=== PATIENT | female | born 1950 | race Hispanic/Latino ===

== ENCOUNTER 2025-01-21 22:02 | Inpatient (IN) | payer OTHER ==
--- OUTSIDE RECORDS SUMMARY | 2025-01-21 22:06 | XMS REPORT | Continuity of Care Document ---
Author Name Unknown Address [address] [facility] [address] [place] [address] Organization [facility] Address [address] [facility] [address] [place] [address] Care Team Providers Care Sales Administration Manager Name Role Phone Pcp, Patient Does Not Have A Primary Care Physic missy Doctor Unassigned, [place] Attending Clinician U navailable Payers Payer Name Policy Type Policy Number Effective Date Expirati on Date Source Problems Condition Name Condition Details Condition Category Status Onset Date Resolution Date Last Treatment Date Treating Clinician Comments Source Anemia Anemia Disease Active 03-07 00:00: 00 [facility] Polymyalgi a rheumatica Polymyalgi a rheumatica Disease Active 12-31 00:00: 00 [facility] Positive BLUE (antinucle ar antibody) >1:1280 Positive BLUE (antinucle ar antibody) >1:1280 Disease Active 12-20 00:00: 00 [facility] 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 QuantiFERO N-TB test Disease Active 12-19 00:00: 00 [facility] CRP elevated: CRP 19, ESR 120 CRP elevated: CRP 19, ESR 120 Disease Active 12-19 00:00: 00 [facility] Other chronic pain Other chronic pain Disease Active 12-17 00:00: 00 [facility] Rotator cuff tendinitis , unspecifie d laterality Rotator cuff tendinitis , unspecifie d laterality Disease Active 12-17 00:00: 00 [facility] detention (current) use of systemic steroids detention (current) use of systemic steroids Disease Active 12-17 00:00: 00 [facility] At risk for bone density loss At risk for bone density loss Disease Active 12-17 00:00: 00 [facility] Swelling of both hands Swelling of both hands Disease Active 12-17 00:00: 00 [facility] Immunizati on counseling Immunizati on counseling Disease Active 12-17 00:00: 00 [facility] Social History Social Habit Start Date Stop Date Quantity Comments Source [facility] function 2019-04-09 00:00:00 2019-04-09 00:00:00 [facility] Tobacco use and exposure 2017-12-17 00:00:00 2017-12-17 00:00:00 Smokeless tobacco non-user [facility] Alcoholic beverage intake 2017-12-17 00:00:00 2017-12-17 00:00:00 Current non-drinker of alcohol (finding) [facility] Sex assigned at 1950 00:00:00 1950 00:00:00 [facility] Smoking Status Start Date Stop Date Source Never smoked tobacco [facility] Medications Ordered Medication Name Filled Medication Name Start Date Stop Date Current Medication? Ordering Clinician Indication Dosage Frequency Signature (SIG) Comments Components Source triamterene -hydrochlor othiazid 37.5-25 mg tablet 11-27 00:00: 00 Yes 1{tbl} Take 1 tablet by mouth every morning. [facility] traMADOL 50 mg tablet 11-26 00:00: 00 Yes 50mg Take 50 mg by mouth 2 (two) times daily. [facility] lisinopril 40 mg tablet 11-21 00:00: 00 Yes 40mg Take 40 mg by mouth daily. [facility] clonazePAM 0.5 mg tablet 11-21 00:00: 00 Yes .5mg Take 0.5 mg by mouth at bedtime as needed. [facility] Procedures Procedure Date / Time Performed Performing Clinician Source QUANTIFERON(R)-TB GOLD-Q 2017-12-18 04:00:00 Twan Major [facility] FOOT, COMPLETE MIN. 3 VIEWS 2017-12-17 16:00:00 Michael Major [facility] HAND, 3 VIEWS AND MORE 2017-12-17 16:00:00 Rachel Major [facility] HAND, 3 VIEWS AND MORE 2017-12-17 16:00:00 Rachel Major [facility] FOOT, COMPLETE MIN. 3 VIEWS 2017-12-17 16:00:00 [facility] A[facility](TM[facility] SCREEN$W/REFL TO TITER, IFA-Q 2017-12-17 16:00:00 [facility] HEPATITIS B SURFACE$ANTIGEN W/ CONFIRMATION-Q 2017-12-17 16:00[facility]$ANTIBODY QL-Q 2017-12-17 16:00:00 Moriah [facility] KJBBIRM-2-ABMLIQORM $DEHYDROGENASE, QUANT.-Q 2017-12-17 16:00:00 Moriah [facility] PROTEIN, TOTAL AND PROTEIN ELECTROPHORESIS-Q 2017-12-17 16:00:00 [facility] SED RATE BY MODIFIED$WESTERGREN-Q 2017-12-17 16:00:00 Moriah [facility] C-REACTIVE PROTEIN-Q 2017-12-17 16:00:00 Jose Major [facility] HEPATITIS B CORE IGM$ANTIBODY-Q 2017-12-17 16:00:00 [facility] URINALYSIS, COMPLETE-Q 2017-12-17 16:00:00 Rachel Major [facility] CBC (INCLUDES DIFF/PLT)-Q 2017-12-17 16:00:00 [facility] SJOGREN'S ANTIBODIES$(SS-A,SS-B)-Q 2017-12-17 16:00:00 Michael Major [facility] HEPATITIS C ANTIBODY-Q 2017-12-17 16:00:00 Rachel Major [facility] COMPREHENSIVE METABOLIC$PANEL W/EGFR-Q 2017-12-17 16:00:00 Michael Major [facility] CYCLIC CITRULLINATED$PEPTIDE CCP AB IGG-Q 2017-12-17 16:00:00 Michael Major [facility] VITAMIN D, 25-HYDROXY,$LC/MS/MS-Q 2017-12-17 16:00:00 Michael Major [facility] SED RATE BY MODIFIED$WESTERGREN, MANUAL-Q 2017-12-17 16:00:00 Michael Major [facility] PROTEIN, TOTAL AND PROTEIN ELECTROPHORESIS, RANDOM URINE-Q 2017-12-17 16:00:00 Michael Major [facility] RHEUMATOID FACTOR (IGA, IGG, IGM)-Q 2017-12-17 16:00:00 Michael Major [facility] HIV 1/2 ANTIGEN/ANTIBODY,FOURTH GENERATION W/RFL-Q 2017-12-17 16:00:00 Michael Major [facility] XR CHEST 2 VW 2017-12-17 16:00:00 [facility] Encounters Start Date/Time End Date/Time Encounter Type Admission Type Attending [facility] Care Facility Care Department Encounter ID Source 2017-12-17 00:00:00 2024-11-14 03:24:06 Orders Only Doctor Unassigned, [place] Doctor Unassigned, [place] [facility] ([facility]) [id number] [id number] [id number] [id number] [id number] [facility] 2017-12-17 00:00:00 2024-11-14 03:24:05 Orders Only Doctor Unassigned, [place] Doctor Unassigned, [place] [facility] ([facility]) [id number] [id number] 4.2.7.2.686 [id number] [id number] [facility] 2017-12-17 00:00:00 2024-11-14 03:24:05 Orders Only Doctor Unassigned, [place] Doctor Unassigned, [place] [facility] ([place]) [id number] [id number] 4.2.7.2.686 [id number] [id number] [facility] 2017-12-17 00:00:00 2024-11-14 03:24:05 Orders Only Doctor Unassigned, [place] Doctor Unassigned, [place] [facility] ([place]) [id number] [id number] 4.2.7.2.686 [id number] [id number] [facility] 2017-12-17 00:00:00 2024-11-14 03:24:05 Orders Only Doctor Unassigned, [place] Doctor Unassigned, [place] [facility] ([facility]) [id number] [id number] 4.2.7.2.686 [id number] [id number] [facility] Results Test Description Test Time Test Comments Results Result Co mments Source [facility], TOTAL AND PROTEIN ELECTROPHORESIS-Q 2017-12-24 11:41:00* Test Item Value Reference Range Interpretation Comme nts PROTEIN, TOTAL-Q (test code = 91862) 7.1 g/dL 6.1-8.1 ALBUMIN-Q (test code = 50862) 3.5 g/dL 3.8-4.8 L QMBIJ-7-YKTCLRKJU-Q (test code = 71282) 0.4 g/dL 0.2-0.3 H IUHVJ-2-GCCXLAIIO-Q (test code = 20091) 0.9 g/dL 0.5-0.9 BETA 1 GLOBULIN-Q (test code = 99206) 0.5 g/dL 0.4-0.6 BETA 2 GLOBULIN-Q (test code = 51446) 0.5 g/dL 0.2-0.5 GAMMA GLOBULINS-Q (test code = 41559) 1.4 g/dL 0.8-1.7 ABNORMAL PROTEIN BAND-Q (test code = 88544) ABNORMAL PROTEIN BAND 2-Q (test code = 11602) ABNORMAL PROTEIN BAND 3-Q (test code = 77753) INTERPRETATION-Q (test code = 29448) Pattern consistent with an acute phase reaction HARRIS (test code = HARRIS) PERFORMED BY [employer]; [address] [place] [address]; Dr. Alex Hoffman Lab Interpretation (test code = 76716-4) Abnormal [facility] Hospital[facility]PRE[facility]ENSIVE METABOLIC$PANEL W/EGFR-Q 2017-12-24 11:41:00* Test Item Value Reference Range Interpretation Comme nts GLUCOSE-Q (test code = 70867) 91 mg/dL 65-99 ? Fastin g reference interval UREA NITROGEN (BUN)-Q (test code = 84596) 14 mg/dL 7-25 CREATININE-Q (test code = 23258) 0.78 mg/dL 0.50-0.99 For patients >49 years of age, the reference limitfor Creatinine is approximately 13% higher for peopleidentified as -Kazakh. eGFR NON-AFR. MALAYSIAN-Q (test code = 22780) 78 See_Comment [Automated [employer]ong] The system which generated this result transmitted reference range: > OR = 60 mL/min/1.73m2. The reference range was not used to interpret this result as normal/abnormal. eGFR -Q (test code = 90877) 90 See_Comment [[employer]] The system which generated this result transmitted reference range: > OR = 60 mL/min/1.73m2. The reference range was not used to interpret this result as normal/abnormal. BUN/CREATININE RATIO-Q (test code = 65199) NOT APPLICABLE 6-22 SODIUM-Q (test code = 72505) 138 mmol/L 135-146 POTASSIUM-Q (test code = 57328) 4.2 mmol/L 3.5-5.3 CHLORIDE-Q (test code = 43457) 104 mmol/L 98-110 CARBON DIOXIDE-Q (test code = 18311) 20 mmol/L 20-31 CALCIUM-Q (test code = 35880) 9.2 mg/dL 8.6-10.4 PROTEIN, TOTAL-Q (test code = 43882) 7.1 g/dL 6.1-8.1 ALBUMIN-Q (test code = 31323) 3.6 g/dL 3.6-5.1 GLOBULIN-Q (test code = 75821) 3.5 1.9-3.7 ALBUMIN/GLOBULI N RATIO-Q (test code = 79014) 1.0 1.0-2.5 BILIRUBIN, TOTAL-Q (test code = 86342) 0.3 mg/dL 0.2-1.2 ALKALINE PHOSPHATASE-Q (test code = 77096) 89 U/L 33-130 AST-Q (test code = 27607) 22 U/L 10-35 ALT-Q (test code = 47650) 18 U/L 6-29 HARRIS (test code = HARRIS) PERFORMED BY [employer] [facility]; [address] [place] [phone]; Etta Holbrook MD [facility] HospitalRHEUMATOID FACTOR (IGA, IGG, IGM)-[id number] 11:41:00* Test Item Value Reference Range Interpretation Comme nts RHEUMATOID FACTOR (IGG)-Q (test code = 00369) TNP * Test not performed. ? * * SST (serum separator tube) is * * not an acceptable specimen ? ?* * for this test. Resubmit serum * * from a plain red-top tube. ? ?* RHEUMATOID FACTOR (IGA)-Q (test code = 84740) TNP U * Test not performed. ? * * SST (serum separator tube) is * * not an acceptable specimen ? ?* * for this test. Resubmit serum * * from a plain red-top tube. ? ?* RHEUMATOID FACTOR (IGM)-Q (test code = 29013) TNP U * Test not performed. ? * * SST (serum separator tube) is * * not an acceptable specimen ? ?* * for this test. Resubmit serum * * from a plain red-top tube. ? ?* HARRIS (test code = HARRIS) PERFORMED BY [employer] [facility]; [address] [place] [address]; Mia Dominguez MD,PhD,[place] [facility] HospitalSED RATE BY MODIFIED$EIRNIMIGSA-[id number] 11:41:00* Test Item Value Reference Range Interpretation Comme nts SED RATE BY MODIFIED$WESTE RGREN-Q (test code = 84552) TNP mm/h Test Not Performed. ?Please be advised that we received ?your order for test code 809 - ESR, Automated. Due to insufficient ? ? ?specimen volume the automated ESR ? [place]. [place] [address] and a manual ESR ? was performed. Billing has been ? ? changed as appropriate. Please ? ? ?contact us with any questions. ? ? ? HARRIS (test code = HARRIS) PERFORMED BY [employer]; [address] [place] [address]; Etta Holbrook MD [facility] HospitalURINALYSIS, [id number] 11:41:00* Test Item Value Reference Range Interpretation Comme nts COLOR-Q (test code = 42628) TNP * Test Not Performed. ? * * Improper specimen submitted. ? ? ?* * Please re-submit in a Gabriel ? * * yellow-top urinalysis transport ? * * tube. ? * HARRIS (test code = HARRIS) [facility]; [address] [place] [phone]; Etta Holbrook MD [facility] HospitalCB (INCLUDES DIFF/PLT)-[id number] 11:41:00* Test Item Value Reference Range Interpretation Comme nts WHITE BLOOD CELL COUNT-Q (test code = 92518) 6.0 3.8-10.8 RED BLOOD CELL COUNT-Q (test code = 53113) 3.38 3.80-5.10 L HEMOGLOBIN-Q (test code = 93457) 10.1 g/dL 11.7-15.5 L HEMATOCRIT-Q (test code = 64372) 30.1 % 35.0-45.0 L MCV-Q (test code = 50802) 89.1 fL 80.0-100.0 MCH-Q (test code = 38051) 29.9 pg 27.0-33.0 MCHC-Q (test code = 86352) 33.6 g/dL 32.0-36.0 Specimen was prewarmed to 37 degreesto obtain results.Cold agglutinin/cryog lobulin suspected. RDW-Q (test code = 68724) 14.5 % 11.0-15.0 PLATELET COUNT-Q (test code = 82989) 344 140-400 MPV-Q (test code = 07318) 10.9 fL 7.5-12.5 ABSOLUTE NEUTROPHILS-Q (test code = 44532) 4248 [phone] ABSOLUTE BAND NEUTROPHILS-Q (test code = 81393) ABSOLUTE METAMYELOCYTES-Q (test code = 67107) ABSOLUTE MYELOCYTES-Q (test code = 72968) ABSOLUTE PROMYELOCYTES-Q (test code = 87496) ABSOLUTE LYMPHOCYTES-Q (test code = 97281) [phone] ABSOLUTE MONOCYTES-Q (test code = 95764) 300 200-950 ABSOLUTE EOSINOPHILS-Q (test code = 90285) 60 15-500 ABSOLUTE BASOPHILS-Q (test code = 82252) 18 0-200 ABSOLUTE BLASTS-Q (test code = 31731) ABSOLUTE NUCLEATED RBC-Q (test code = 99430) NEUTROPHILS-Q (test code = 24704) 70.8 % BAND NEUTROPHILS-Q (test code = 91692) METAMYELOCYTES-Q (test code = 45775) MYELOCYTES-Q (test code = 33564) PROMYELOCYTES-Q (test code = 12600) LYMPHOCYTES-Q (test code = 81301) 22.9 % REACTIVE LYMPHOCYTES-Q (test code = 48235) MONOCYTES-Q (test code = 55362) 5.0 % EOSINOPHILS-Q (test code = 53544) 1.0 % BASOPHILS-Q (test code = 66055) 0.3 % BLASTS-Q (test code = 20211) NUCLEATED RBC-Q (test code = 21959) COMMENT(S)-Q (test code = 83517) HARRIS (test code = HARRIS) [facility]; [address] [place] [phone]; Etta Holbrook MD Lab Interpretation (test code = 75698-6) Abnormal [facility](TM) SCREEN$W/REFL TO TITER, IFA-Q 2017-12-24 11:41:00* Test Item Value Reference Range Interpretation Comments BLUE SCREEN-Q (test code = 33145) POSITIVE NEGATIVE BLUE IFA is a fir st line screen for detecting thepresence of up to approximately 150 autoantibodies invarious autoimmune diseases. A positive BLUE IFA resultis suggestive of autoimmune disease and reflexes totiter and pattern. Further laboratory testing may beconsidered if clinically indicated. Visit Physician FAQs for interpretation of allantibodies in the [place], prevalence, and associationwith diseases at http://education.[employer].com/faq/FA Q177 ? BLUE PATTERN-Q (test code = 26096) HOMOGENEOUS Homogeneous elaine lesley is associated with systemic lupuserythematosus (SLE), drug induced lupus and juvenileidiopathic arthritis. ANTINUCLEAR ANTIBODIES-Q (test code = 15007) 1:1280 titer H ?Reference Range ?<1:40 ?Negative ?1:40-1:80 ? ?Low Antibody Level ?>1:80 ?Elevated Antibody Level HARRIS (test code = HARRIS) [facility]FOR[facility]; [address] [place] [phone]; Dr. Alex Hoffman Lab Interpretation (test code = 34538-5) Abnormal [facility] HospitalSJOGREN'S ANTIBODIES$(SS-A,SS-B)-[id number] 11:41:00* Test Item Value Reference Range Interpretation Comme nts SJOGREN'S ANTIBODY (SS-A)-Q (test code = 50952) <1.0 NEG See_Comment [Automated message] The system which generated this result transmitted reference range: <1.0 NEG AI. The reference range was not used to interpret this result as normal/abnormal. SJOGREN'S ANTIBODY (SS-B)-Q (test code = 30682) <1.0 NEG See_Comment [Automated message] The system which generated this result transmitted reference range: <1.0 NEG AI. The reference range was not used to interpret this result as normal/abnormal. HARRIS (test code = HARRIS) [facility]; [address] [place] [phone]; Dr. Alex Hoffman [facility] HospitalCYCLIC CITRULLINATED$PEPTIDE CCP AB IGG-Q 2017-12-24 11:41:00* Test Item Value Reference Range Interpretation Comme nts CYCLIC CITRULLINATED$P EPTIDE CCP AB IGG-Q (test code = 63720) <16 UNITS Reference RangeNegative: ?<20Weak Positive: ? ? ? 20-39Moderate Positive: ? 40-59Strong Positive: ? ? >59 HARRIS (test code = HARRIS) [facility]; [address] [place] [phone]; Dr. Alex Hoffman [facility] HospitalC-REACTIVE [id number] 11:41:00* Test Item Value Reference Range Interpretation Comme nts C-REACTIVE PROTEIN-Q (test code = 14295) 19.0 mg/L <=8.0 H HARRIS (test code = HARRIS) [facility]; [address] [place] [phone]; Etta Holbrook MD Lab Interpretation (test code = 18957-7) Abnormal [facility] B SURFACE$ANTIGEN W/ CONFIRMATION-Q 2017-12-24 11:41:00* Test Item Value Reference Range Interpretation Comme nts HEPATITIS B SURFACE$ANTIGEN-Q (test code = 12844) NON-REACTIVE NON-REACTI CONFIRMATION-Q (test code = 63548) HARRIS (test code = HARRIS) [facility]; [address] [place] [phone]; Etta Holbrook MD [facility] B SURFACE$ANTIBODY [id number] 11:41:00* Test Item Value Reference Range Interpretation Comme nts HEPATITIS B SURFACE$ANTIBODY QL-Q (test code = 93194) NON-REACTIVE NON-REACTI HARRIS (test code = HARRIS) [facility]; [address] [place] [phone]; Etta Holbrook MD [facility] B CORE IGM$[id number] 11:41:00* Test Item Value Reference Range Interpretation Comme nts HEPATITIS B CORE IGM$ANTIBODY-Q (test code = 04934) NON-REACTIVE NON-REACTI HARRIS (test code = HARRIS) [facility]; [address] [place] [phone]; tEta Holbrook MD [facility] C [id number] 11:41:00* Test Item Value Reference Range Interpretation Comme nts HEPATITIS C ANTIBODY-Q (test code = 32144) NON-REACTIVE NON-REACTI SIGNAL TO CUT-OFF-Q (test code = 62010) 0.01 <=1.00 HARRIS (test code = HARRIS) [facility]; [address] [place] [phone]; Etta Holbrook MD [facility] HospitalHIV 1/2 ANTIGEN/ANTIBODY,FOURTH GENERATION [id number] 11:41:00* Test Item Value Reference Range Interpretation Comme nts HIV AG/AB, 4TH GEN-Q (test code = 31022) NON-REACTIVE NON-REACTI HIV-1 antigen an d HIV-1/HIV-2 antibodies were notdetected. There is no laboratory evidence of HIVinfection. PLEASE NOTE: This information has been disclosed toyou from records whose confidentiality may beprotected by state law. ?If your state requires suchprotection, then the state law prohibits you frommaking any further disclosure of the informationwithout the specific written consent of the personto whom it pertains, or as otherwise permitted by law.A general authorization for the release of medical orother information is NOT sufficient for this purpose. ?For additional information please refer tohttp://education.[employer]/faq/AYP708(T his link is being provided for informational/educational purposes only.) The performance of this assay has not been clinicallyvalidated in patients less than 2 years old. HARRIS (test code = HARRIS) PERFORMED [facility]; [address] [place] [address]; Etta Holbrook MD [facility] HospitalGLUCOSE-6-PHOSPHATE $DEHYDROGENASE, QUANT.-Q 2017-12-24 11:41:00* Test Item Value Reference Range Interpretation Comme nts GWIPLTS-4-LFDNRHGPB DEHYDROGENASE-Q (test code = 37260) 15.3 7.0-20.5 HARRIS (test code = HARRIS) PERFORMED BY [facility]; [address] [place] [address]; Mia Dominguez MD,PhD,[place] [facility] HospitalVITAMIN D, 25-HYDROXY,$LC/MS/EU-[id number] 11:41:00* Test Item Value Reference Range Interpretation Comme nts VITAMIN D, 25-OH, TOTAL-Q (test code = 53307) 44 ng/mL 30-100 Vitamin D Status ? 25-OH Vitamin D: Deficiency: ?<20 ng/mLInsufficiency: ? 20 - 29 ng/mLOptimal: ? > or = 30 ng/mL For 25-OH Vitamin D testing on patients on D2-supplementation and patients for whom quantitation of D2 and D3 fractions is required, the QuestAssureD(TM)25-O H VIT D, (D2,D3), LC/MS/MS is recommended: order code 71931 (patients >2yrs). For more information on this test, go to:http://education. [employer] /faq/FGK688(This link is being provided for informational/educat ional purposes only.) HARRIS (test code = HARRIS) PERFORMED BY [employer]; [address] [place] [phone]; Etta Holbrook MD [facility] HospitalPROTEIN, TOTAL AND PROTEIN ELECTROPHORESIS, RANDOM [id number] 11:41:00* Test Item Value Reference Range Interpretation Comme nts CREATININE, RANDOM URINE-Q (test code = 64161) 40 mg/dL 20-320 PROTEIN, TOTAL, RANDOM UR-Q (test code = 17193) 100 21-161 PROTEIN, TOTAL, RANDOM UR-Q (test code = 65342) 4 mg/dL 5-24 L ALBUMIN-Q (test code = 07629) See_Comment NONE DETECTED [Automated message] The system which generated this result transmitted reference range: %. The reference range was not used to interpret this result as normal/abnormal. UYGPQ-8-CGIHFAHOR-Q (test code = 23385) See_Comment NONE DETECTE D [Automated message] The system which generated this result transmitted reference range: %. The reference range was not used to interpret this result as normal/abnormal. QERQB-5-FFZBYBDIQ-Q (test code = 55755) See_Comment NONE DETECTE D [Automated message] The system which generated this result transmitted reference range: %. The reference range was not used to interpret this result as normal/abnormal. BETA GLOBULINS-Q (test code = 51227) See_Comment NONE DETECTE D [Automated message] The system which generated this result transmitted reference range: %. The reference range was not used to interpret this result as normal/abnormal. GAMMA GLOBULINS-Q (test code = 45737) See_Comment NONE DETECTE D [Automated message] The system which generated this result transmitted reference range: %. The reference range was not used to interpret this result as normal/abnormal. ABNORMAL PROTEIN BAND 1-Q (test code = 68126) ABNORMAL PROTEIN BAND 2-Q (test code = 04062) ABNORMAL PROTEIN BAND 3-Q (test code = 19866) INTERPRETATION-Q (test code = 16266) Albumin and globulin are below the level of detection by agaroseelectropho resis. No abnormal protein bands (Bence-Jonesprote inuria) detected. HARRIS (test code = HARRIS) [facility]FOR[facility]; [address] [place] [phone]; Dr. Alex Hoffman Lab Interpretation (test code = 77225-5) Abnormal [facility] HospitalSED RATE BY MODIFIED$DELVIS, MANUAL-Q 2017-12-24 11:41:00* Test Item Value Reference Range Interpretation Comme nts SED RATE BY MODIFIED$WESTERGREN, MANUAL-Q (test code = 37629) 120 mm/h See_Comment H Verified by repeat analysis. [Automated message] The system which generated this result transmitted reference range: < OR = 30. The reference range was not used to interpret this result as normal/abnormal. HARRIS (test code = HARRIS) [facility]; [address] [place] [address]; Etta Holbrook MD Lab Interpretation (test code = 74732-8) Abnormal [facility] 2 [id number] 16:23:00 *.*.*.*.*.*.*.*.*.*.*.*.*.*FINAL*.*.*.*.*.*.*.*.*.*.*.*.*.*.*EXAM: CHEST, 2 VIEWS- HISTORY: Screening exam for patient undergoing autoimmune work up COMPARISON: None. FINDINGS: The heart and great vessels are normal and the lungs are clear. ?Personally interpreted by: MARIBEL DON MD /Signed/ [facility]EL [facility]Un[facility], COMPLETE MIN. 3 [id number] 16:08:00 *.*.*.*.*.*.*.*.*.*.*.*.*.*FINAL*.*.*.*.*.*.*.*.*.*.*.*.*.*.*EXAM: FOOT, COMPLETE MIN. 3 VIEWS-RIGHT SIDE, EXAM: FOOT, COMPLETE MIN. 3 VIEWS-LEFT SIDE HISTORY: Please evaluate for erosions, periarticular osteopenia, and other findings forpatient with inflammatory arthritis, thanks COMPARISON: None. FINDINGS: Imaging of the bilateral feet was obtained. No acute fracture or dislocation is seen. No discrete erosion is identified.Diffuse narrowing of the interphalangeal joints is seen. There is mild bilateralfirst MTP and interphalangeal joint space narrowing and osteophytosis. Hammertoedeformities are seen bilaterally. Medial deviation of the second MTP joints isseen at both feet. Calcaneal enthesophytes are present. There is mild bilateraldorsal talonavicular and mid foot osteophytosis. Osteopenia is seen. ?Personally interpreted by: DAVONTE COFFEY MD /Signed/ DAVONTE [facility]FF[facility]Y MD[facility], COMPLETE MIN. 3 [id number] 16:08:00 *.*.*.*.*.*.*.*.*.*.*.*.*.*FINAL*.*.*.*.*.*.*.*.*.*.*.*.*.*.*EXAM: FOOT, COMPLETE MIN. 3 VIEWS-RIGHT SIDE, EXAM: FOOT, COMPLETE MIN. 3 VIEWS-LEFT SIDE HISTORY: Please evaluate for erosions, periarticular osteopenia, and other findings forpatient with inflammatory arthritis, thanks COMPARISON: None. FINDINGS: Imaging of the bilateral feet was obtained. No acute fracture or dislocation is seen. No discrete erosion is identified.Diffuse narrowing of the interphalangeal joints is seen. There is mild bilateralfirst MTP and interphalangeal joint space narrowing and osteophytosis. Hammertoedeformities are seen bilaterally. Medial deviation of the second MTP joints isseen at both feet. Calcaneal enthesophytes are present. There is mild bilateraldorsal talonavicular and mid foot osteophytosis. Osteopenia is seen. ?Personally interpreted by: DAVONTE COFFEY MD /Signed/ DAVONTE COFFEY MDWin[facility], 3 VIEWS AND [id number] 16:06:00 *.*.*.*.*.*.*.*.*.*.*.*.*.*FINAL*.*.*.*.*.*.*.*.*.*.*.*.*.*.*EXAM: HAND, 3 VIEWS AND MORE-RIGHT SIDE, EXAM: HAND, 3 VIEWS AND MORE-LEFT SIDE HISTORY: Please evaluate for any inflammatory or degenerative changes, thanks COMPARISON: None. FINDINGS: Imaging of the bilateral hands was obtained. Right hand: No acute fracture or dislocation is seen. Narrowing, subchondralsclerosis and osteophytosis arepresent at the radiocarpal and thumbcarpometacarpal joints. There is mild diffuse interphalangeal joint spacenarrowing. No discrete erosion is identified. Diffuse osteopenia is present.Mild soft tissue swelling is seen diffusely throughout the hand. No acutefracture or dislocation is identified. Left hand: Mild radiocarpal, thumb carpometacarpal and interphalangeal jointspace narrowing is seen. No acute fracture or dislocation is identified. Nodiscrete erosion is seen. There is diffuse mild soft tissue swelling. Osteopeniais noted. ?Personally interpreted by: DAVONTE COFFEY MD /Signed/ DAVONTE COFFEY MDWin[facility], 3 VIEWS AND MORE 2017-12-17 16:06:00 *.*.*.*.*.*.*.*.*.*.*.*.*.*FINAL*.*.*.*.*.*.*.*.*.*.*.*.*.*.*EXAM: HAND, 3 VIEWS AND MORE-RIGHT SIDE, EXAM: HAND, 3 VIEWS AND MORE-LEFT SIDE HISTORY: Please evaluate for any inflammatory or degenerative changes, thanks COMPARISON: None. FINDINGS: Imaging of the bilateral hands was obtained. Right hand: No acute fracture or dislocation is seen. Narrowing, subchondralsclerosis and osteophytosis are present at the radiocarpal and thumbcarpometacarpal joints. There is mild diffuse interphalangeal joint spacenarrowing. No discrete erosion is identified. Diffuse osteopenia is present.Mild soft tissue swelling is seen diffusely throughout the hand. No acutefracture or dislocation is identified. Le ft hand: Mild radiocarpal, thumb carpometacarpal and interphalangeal jointspace narrowing is seen. No acute fracture or dislocation is identified. Nodiscrete erosion is seen. There is diffuse mild soft tissue swelling. Osteopeniais noted. ?Personally interpreted by: DAVONTE COFFEY MD /Signed/ DAVONTE COFFEY MD [facility]
[2025-01-21] MEDS ORDERED: NA CHLORIDE 0.9% 1,000 ML ONE (22:41)
[2025-01-21] MEDS ORDERED: ONDANSETRON 4 MG/2 ML VIAL ONE (22:41)
[2025-01-21] MEDS ORDERED: MORPHINE 4 MG/ML SYR ONE (22:41)
[2025-01-21 23:13] LABS: Absolute Eosinophils 0.1 K/uL (0-0.5); Absolute Lymphocytes (CBC) 2.3 K/uL (0.7-4.9); Absolute Monocytes 0.7 K/uL (0.1-1.3); Absolute Neutrophil 7.6 K/uL (1.8-8.0); Basophils % 0.2 % (0-1.3); Eosinophils % 0.8 % (0-4.4); Hematocrit 28.5 % (36.0-45.0); Hemoglobin 9.7 g/dL (12.0-15.0); Lymphocytes % 21.8 % (15.3-44.8); MCH 29.1 pg (27.0-35.0); MCHC 33.9 g/dL (32.0-36.0); MCV 85.8 fL (80-100); MPV 8.1 fL (7.6-11.3); Monocytes % 6.2 % (3.3-12.3); Platelets 269 thou/uL (152-406); RBC Red Blood Cell Count 3.32 M/uL (3.86-4.86); Red Cell Distribution Width 14.4 % (12.1-15.2)
[2025-01-21 23:23] LABS: Albumin 3.4 g/dL (3.4-5.0); Albumin/Globulin Ratio 0.7 (1.1-1.8); Anion Gap 10.9 mEq/L (5.0-15.0); Bilirubin Total 0.3 mg/dL (0.2-1.0); Globulin 4.8 g/dL (2.3-3.5); Potassium 3.9 mEq/L (3.5-5.1); Protein, Total 8.2 g/dL (6.4-8.2)
[2025-01-21] MEDS ORDERED: FENTANYL CITR 100 MCG/2 ML ONE (23:49)
[2025-01-21] MEDS ORDERED: FAMOTIDINE 20 MG/2 ML VIAL IV ONE (23:50)
--- NOTE | 2025-01-22 00:21 | EDPHYS ---
Physician Documentation [facility] Name: Evelyn Perez Age: 74 yrs Sex: Female : 1950 Arrival Date: 01/21/2025 Time: 22:02 Bed 7 Private MD: ED Physician Aaron Nash HPI: 01/21 22:28 This 74 yrs old Female presents to ER via Unassigned with complaints of sb4 Abdominal Pain, Nausea. 22:28 The patient presents with abdominal pain in the epigastric area. Onset: The sb4 symptoms/episode began/occurred today, After eating dinner. The symptoms radiate to back. Associated signs and symptoms: Pertinent positives: nausea and vomiting. The patient has experienced similar episodes in the past, a few times, but today's symptoms are worse, more painful. Epigastric abdominal pain after eating this evening. States that this has happened before but improves with pantoprazole. States that she did vomit this evening as well. Denies any diarrhea. Historical: - Allergies: 22:32 PENICILLINS; ha1 - PMHx: 22:32 Diabetes mellitus; Hypertensive disorder; ha1 - Immunization history:: Adult Immunizations up to date. - Infectious Disease History:: Denies. - Social history:: Smoking status: Patient denies any tobacco usage or history of. ROS: 22:29 Constitutional: Negative for fever, chills, and weight loss, sb4 22:29 Abdomen/GI: Positive for abdominal pain, nausea and vomiting, 22:29 All other systems are negative, Exam: 22:29 Constitutional: This is a well developed, well nourished patient who is awake, alert, sb4 and in no acute distress. Head/Face: Normocephalic, atraumatic. Eyes: Extra-ocular motions intact. Periorbital areas with no swelling, redness, or edema. ENT: Mucous membranes moist. Cardiovascular: Regular rate and rhythm with a normal S1 and S2. Respiratory: No increased work of breathing, no retractions or nasal flaring. Skin: Warm, dry with normal turgor. Normal color with no rashes, no lesions, and no evidence of cellulitis. 22:29 Abdomen/GI: Inspection: abdomen appears normal, Bowel sounds: normal, Palpation: soft, mild abdominal tenderness, in the epigastric area and right upper quadrant, Vital Signs: 22:20 BP 167 / 67; Pulse 62; Resp 17 S; Temp 98.4(O); Pulse Ox 100% on R/A; Weight 72.12 kg; ha1 Height 5 ft. 0 in. ; 23:53 BP 153 / 65; Pulse 78; Resp 18; Temp 98.4; Pulse Ox 97% ; Pain 7/10; bm8 01/22 00:35 BP 160 / 59; Pulse 55; Resp 18; Temp 98.4; Pulse Ox 100% ; Pain 2/10; bm8 01/21 22:20 Body Mass Index 31.05 (72.12 kg, 152.4 cm) ha1 23:53 Pain Scale: Adult bm8 01/22 00:35 Pain Scale: Adult bm8 [place] Coma Score: 01/21 22:49 Eye Response: spontaneous(4). Motor Response: obeys commands(6). Verbal Response: bm8 oriented(5). Total: 15. 23:53 Eye Response: spontaneous(4). Motor Response: obeys commands(6). Verbal Response: bm8 oriented(5). Total: 15. 01/22 00:35 Eye Response: spontaneous(4). Motor Response: obeys commands(6). Verbal Response: bm8 oriented(5). Total: 15. MDM: 01/21 22:13 Medical Screening Exam initiated sb4 22:34 External Records Reviewed: Outpatient radiology: Abdominal ultrasound from February 2024 sb4 showed cholelithiasis without cholecystitis and Heterogeneous echotexture of the pancreas. 01/22 00:19 Data reviewed: vital signs, nurses notes, lab test result(s), radiologic studies, and sb4 as a result, I will admit patient. Consideration of Admission/Observation Patient was admitted/placed on observation. Management of patient was discussed with the following: Agency Director: Dr. Rojas, will take to OR in morning. Care significantly affected by the following chronic conditions: Diabetes, Hypertension, Obesity. Counseling: I had a detailed discussion with the patient and/or guardian regarding the historical points, exam findings, and any diagnostic results supporting the discharge/admit diagnosis, lab results, radiology results, the need for further work-up and treatment in the hospital. 01/21 22:28 Order name: CBC with Diff; Complete Time: 23:17 sb4 01/21 22:28 Order name: CMP; Complete Time: 23:25 sb4 01/21 22:28 Order name: Lipase; Complete Time: 23:25 sb4 01/21 22:28 Order name: CT Abd/Pelvis - IV Contrast Only sb4 01/21 22:49 Order name: Abdomen Limited US sb4 01/21 22:28 Order name: IV Saline Lock; Complete Time: 22:48 sb4 01/21 22:28 Order name: Labs collected and sent; Complete Time: 22:48 sb4 01/22 00:19 Order name: NPO; Complete Time: 00:25 sb4 Administered Medications: 01/21 22:48 Drug: Ondansetron IVP 4 mg IVP once; over 2 minutes Route: IVP; Site: left antecubital; bm8 23:56 Follow up: Response: No adverse reaction bm8 22:48 Drug: morphine IVP or IV 4 mg IVP once over 4 mins Route: IVP; Infused Over: 4 mins; bm8 Site: left antecubital; 23:56 Follow up: Response: No adverse reaction bm8 22:48 Drug: NS 0.9% IV 1000 ml IV at 1 bolus Per protocol; to be given as a bolus over 60 bm8 minutes Route: IV; Rate: 1 bolus; Site: left antecubital; 23:56 Follow up: Response: No adverse reaction; IV Status: Completed infusion bm8 23:56 Drug: Famotidine IVP 20 mg IVP once; dilute with 10 mL 0.9% NaCl; give over 2 minutes bm8 Route: IVP; Site: left antecubital; 01/22 00:32 Follow up: Response: No adverse reaction bm8 01/21 23:56 Drug: fentaNYL (PF) IVP 50 mcg IVP once Route: IVP; Site: left antecubital; bm8 01/22 00:32 Follow up: Response: No adverse reaction bm8 00:32 Drug: Rocephin IV 1 grams IV at calculated rate once; Given slow IV push per pharmacy bm8 instructions Route: IV; Rate: calculated rate; Site: right antecubital; 01:04 Follow up: Response: No adverse reaction; IV Status: Completed infusion bm8 00:32 Drug: metroNIDAZOLE IVPB 500 mg 100 ml IVPB at 200 ml/hr once over 30 mins Volume: 100 bm8 ml; Route: IVPB; Rate: 200 ml/hr; Infused Over: 30 mins; Site: left antecubital; 01:04 Follow up: Response: No adverse reaction; IV Status: Completed infusion bm8 Disposition: 02:04 Co-signature as Attending Physician, Aaron Nash MD I reviewed the patient's care rn provided by the Advanced Practice Provider and agree with the diagnosis and treatment plan. Disposition Summary: 01/22/25 00:20 Hospitalization Ordered Notes: Hospitalization Status: Inpatient Admission sb4 Provider: Dallin Cochran sb4 Location: Telemetry/[facility] (Inpatient) sb4 Condition: Fair sb4 Problem: new sb4 Symptoms: are unchanged sb4 Bed/Room Type: Standard sb4 Room Assignment: 211(01/22/25 00:30) rv1 Diagnosis - Acute cholecystitis sb4 Forms: - Medication Reconciliation Form sb4 - SBAR form sb4 - Leadership Thank You Letter sb4 Signatures: Dispatcher [employer] EDMS Aaron Nash MD MD rn Ayala, Heidy, RN RN ha1 Rody Barragan, PA-C PA-C sb4 Katrin Villagomez rv1 Vincenzo Gan, RN RN bm8 Corrections: (The following items were deleted from the chart) 01/21 22:29 22:29 CBC+H.LAB.BRZ ordered. EDMS EDMS 22:29 22:29 COMPREHENSIVE METABOLIC PANEL+C.LAB.BRZ ordered. EDMS EDMS 22:29 22:29 LIPASE+C.LAB.BRZ ordered. EDCA EDCA 01/22 00:30 00:20 sb4 rv1
--- NOTE | 2025-01-22 00:21 | ER ---
Nurse's Notes [facility] Name: Evelyn Perez Age: 74 yrs Sex: Female : 1950 Arrival Date: 01/21/2025 Time: 22:02 Bed 7 Private MD: Diagnosis: Acute cholecystitis Presentation: 01/21 22:20 Chief complaint: Patient states: MID EPIGASTRIC PAIN, NAUSEA, AND VOMITING. ha1 22:20 Coronavirus screen: Client denies travel out of the [place] in the last 14 days. Ebola ha1 Screen: No symptoms or risks identified at this time. Initial Sepsis Screen: Does the patient meet any 2 criteria? No. Patient's initial sepsis screen is negative. Does the patient have a suspected source of infection? No. Patient's initial sepsis screen is negative. Risk Assessment: Do you want to hurt yourself or someone else? Patient reports no desire to harm self or others. Onset of symptoms was January 21, 2025. 22:20 Method Of Arrival: Wheelchair ha1 22:20 Acuity: JOYCE 3 ha1 Triage Assessment: 22:32 General: Appears uncomfortable, Behavior is cooperative. Pain: Complains of pain in ha1 right upper quadrant and epigastric area Pain currently is 9 out of 10 on a pain scale. Neuro: Level of Consciousness is awake, alert, obeys commands, Oriented to person, place, time, situation. Cardiovascular: Capillary refill < 3 seconds. Respiratory: Airway is patent Respiratory effort is even, unlabored, Respiratory pattern is regular, symmetrical. Historical: - Allergies: 22:32 PENICILLINS; ha1 - PMHx: 22:32 Diabetes mellitus; Hypertensive disorder; ha1 - Immunization history:: Adult Immunizations up to date. - Infectious Disease History:: Denies. - Social history:: Smoking status: Patient denies any tobacco usage or history of. Screenin:49 [facility] ED Fall Risk Assessment (Adult) History of falling in the last 3 months, bm8 including since admission No falls in past 3 months (0 pts) Confusion or Disorientation No (0 pts) Intoxicated or Sedated No (0 pts) Impaired Gait No (0 pts) Mobility Assist Device Used No (0 pt) Altered Elimination No (0 pt) Score/Fall Risk Level 0 - 2 = Low Risk Oriented to surroundings, Maintained a safe environment, Educated pt \T\ family on fall prevention, incl call for assistance when getting out of bed, Assessed \T\ reinforced patient's understanding of fall precautions, Hourly rounding (assess needs \T\ fall precautionary measures) done, Used ambulatory aids as needed (educated on \T\ assisted with), Used gait belt as appropriate. Abuse screen: Denies threats or abuse. Nutritional screening: No deficits noted. Tuberculosis screening: No symptoms or risk factors identified. Assessment: 22:49 Reassessment: No changes from previously documented assessment. bm8 23:53 Reassessment: Patient appears in no apparent distress at this time. Patient and/or bm8 family updated on plan of care and expected duration. Pain level reassessed. General: Appears in no apparent distress. uncomfortable, Behavior is calm, cooperative, appropriate for age. Pain: Complains of pain in epigastric area and right upper quadrant Pain currently is 7 out of 10 on a pain scale. Quality of pain is described as aching, crampy. Neuro: No deficits noted. Level of Consciousness is awake, alert, obeys commands, Oriented to person, place, time, situation, Appropriate for age. Cardiovascular: Denies chest pain. Respiratory: Airway is patent Respiratory effort is even, unlabored, Respiratory pattern is regular, symmetrical. GI: Abdomen is flat, non-distended, Bowel sounds present X 4 quads. Abdomen is tender to palpation in right upper quadrant Reports Pain is 7 out of 10 on a pain scale. 01/22 00:35 Reassessment: Patient appears in no apparent distress at this time. Patient and/or bm8 family updated on plan of care and expected duration. Pain level reassessed. Patient is alert, oriented x 3, equal unlabored respirations, skin warm/dry/pink. Patient states feeling better. Patient states symptoms have improved. Pain: Pain currently is 2 out of 10 on a pain scale. Vital Signs: 01/21 22:20 BP 167 / 67; Pulse 62; Resp 17 S; Temp 98.4(O); Pulse Ox 100% on R/A; Weight 72.12 kg; ha1 Height 5 ft. 0 in. ; 23:53 BP 153 / 65; Pulse 78; Resp 18; Temp 98.4; Pulse Ox 97% ; Pain 7/10; bm8 01/22 00:35 BP 160 / 59; Pulse 55; Resp 18; Temp 98.4; Pulse Ox 100% ; Pain 2/10; bm8 01/21 22:20 Body Mass Index 31.05 (72.12 kg, 152.4 cm) ha1 23:53 Pain Scale: Adult bm8 01/22 00:35 Pain Scale: Adult bm8 [place] Coma Score: 01/21 22:49 Eye Response: spontaneous(4). Motor Response: obeys commands(6). Verbal Response: bm8 oriented(5). Total: 15. 23:53 Eye Response: spontaneous(4). Motor Response: obeys commands(6). Verbal Response: bm8 oriented(5). Total: 15. 01/22 00:35 Eye Response: spontaneous(4). Motor Response: obeys commands(6). Verbal Response: bm8 oriented(5). Total: 15. ED Course: 01/21 22:05 Patient arrived in ED. im 22:08 Rody Barragan PA-C is PHCP. sb4 22:08 Aaron Nash MD is Attending Physician. sb4 22:32 Triage completed. ha1 22:39 Vincenzo Gan, RN is Primary Nurse. bm8 22:49 Patient has correct armband on for positive identification. Bed in low position. Side bm8 rails up X 1. Adult w/ patient. Client placed on continuous cardiac and pulse oximetry monitoring. NIBP monitoring applied. Pulse ox on. NIBP on. Door closed. Noise minimized. Warm blanket given. Pillow given. Verbal reassurance given. Head of bed elevated. 22:49 No provider procedures requiring assistance completed. Initial lab(s) drawn, by ED 8 staff, sent to lab. Inserted saline lock: 20 gauge in left antecubital area, using aseptic technique. Blood collected. Flushed with 10 mL NS. Patient maintains SpO2 saturation greater than 95% on room air. 22:55 Inserted saline lock: 22 gauge in right forearm, using aseptic technique. Blood oe collected. Flushed with 10 mL NS. 23:06 Abdomen Limited US In Process Unspecified. EDMS 23:39 CT Abd/Pelvis - IV Contrast Only In Process Unspecified. EDMS 01/22 00:19 Dallin Cochran MD is Hospitalizing Provider. sb4 01:11 Patient admitted, IV remains in place. bm8 01:12 Provided Education on: need for admission. bm8 01:14 Arm band placed on right wrist. bm8 Administered Medications: 01/21 22:48 Drug: Ondansetron IVP 4 mg IVP once; over 2 minutes Route: IVP; Site: left antecubital; bm8 23:56 Follow up: Response: No adverse reaction bm8 22:48 Drug: morphine IVP or IV 4 mg IVP once over 4 mins Route: IVP; Infused Over: 4 mins; bm8 Site: left antecubital; 23:56 Follow up: Response: No adverse reaction bm8 22:48 Drug: NS 0.9% IV 1000 ml IV at 1 bolus Per protocol; to be given as a bolus over 60 bm8 minutes Route: IV; Rate: 1 bolus; Site: left antecubital; 23:56 Follow up: Response: No adverse reaction; IV Status: Completed infusion bm8 23:56 Drug: Famotidine IVP 20 mg IVP once; dilute with 10 mL 0.9% NaCl; give over 2 minutes bm8 Route: IVP; Site: left antecubital; 01/22 00:32 Follow up: Response: No adverse reaction bm8 01/21 23:56 Drug: fentaNYL (PF) IVP 50 mcg IVP once Route: IVP; Site: left antecubital; bm8 01/22 00:32 Follow up: Response: No adverse reaction bm8 00:32 Drug: Rocephin IV 1 grams IV at calculated rate once; Given slow IV push per pharmacy bm8 instructions Route: IV; Rate: calculated rate; Site: right antecubital; 01:04 Follow up: Response: No adverse reaction; IV Status: Completed infusion bm8 00:32 Drug: metroNIDAZOLE IVPB 500 mg 100 ml IVPB at 200 ml/hr once over 30 mins Volume: 100 bm8 ml; Route: IVPB; Rate: 200 ml/hr; Infused Over: 30 mins; Site: left antecubital; 01:04 Follow up: Response: No adverse reaction; IV Status: Completed infusion bm8 Medication: 01/21 22:49 VIS not applicable for this client. bm8 Outcome: 01/22 00:20 Decision to Hospitalize by Provider. sb4 01:12 Admitted to Med/surg accompanied by tech, via wheelchair, room 211, on monitor, bm8 01:12 Condition: stable 01:12 Instructed on follow up and referral plans. the need for admit, Demonstrated understanding of instructions, follow-up care, medications, 01:14 Patient left the ED. bm8 Signatures: Dispatcher [employer] EDMS Reagan Lama Heidy, RN RN ha1 Rody Barragan, PA-C PA-C sb4 Siobhan Massey Brad, RN RN bm8
[2025-01-22] MEDS ORDERED: METRONIDAZOLE 500mg IVPB 500 MG/100 ML BAG IV ONE (00:26)
[2025-01-22] MEDS ORDERED: CEFTRIAXONE 1000 MG/VIAL ONE (00:26)
[2025-01-22] MEDS ORDERED: MORPHINE 4 MG/ML SYR ONE (00:44)
--- NOTE | 2025-01-22 01:13 | RAD REPORT ---
EXAM: CT Abdomen and Pelvis With Intravenous Contrast CLINICAL HISTORY: ABD PAIN TECHNIQUE: Axial computed tomography images of the abdomen and pelvis with intravenous contrast. Sagittal and coronal reformatted images were created and reviewed. This CT exam was performed using one or more of the following dose reduction techniques: automated exposure control, adjustment of the mA a nd/or kV according to patient size, and/or use of iterative reconstruction technique. COMPARISON: No relevant prior studies available. FINDINGS: Lung bases: Unremarkable. No mass. No consolidation. Heart: Coronary artery calcification. ABDOMEN: Liver: Unremarkable. No mass. Gallbladder and bile ducts: Gallstones within a mildly distended and minimally thickened gallbladde r. Mild intrahepatic and extrahepatic biliary dilatation. No calcified ductal stones. Pancreas: Unremarkable. No mass. No ductal dilation. Spleen: Unremarkable. No splenomegaly. Adrenals: Unremarkable. No mass. Kidneys and ureters: The right kidney is atrophic relative to the left with areas of cortical thinn ing/scar. Normal renal cortical enhancement. No calculi. No hydronephrosis. Subcentimeter renal cortical hypodensities bilaterally which are too small to characterize. Stomach and bowel: Moderate stool. No bowel obstruction. Colonic diverticula without adjacent infla mmatory change. No mucosal thickening. PELVIS: Appendix: Normal caliber appendix. No findings to suggest acute appendicitis. Bladder: Unremarkable. No mass. Reproductive: Atrophic uterus. Focal coarse myometrial calcifications compatible with underlying fi broid. No adnexal mass. ABDOMEN and PELVIS: Intraperitoneal space: Unremarkable. No free air. No significant fluid collection. Bones/joints: No acute fracture. No dislocation. Soft tissues: Small right inguinal hernia containing small bowel. Small fat-containing left inguina l hernia. Vasculature: Mild atherosclerotic disease. No abdominal aortic aneurysm Lymph nodes: Unremarkable. No enlarged lymph nodes. IMPRESSION: 1. Findings which may reflect early acute cholecystitis. Mild biliary dilatation. No calcified duct al stones. 2. Other findings as above. Electronically signed by: Winnie Stovall MD 01/22/2025 12:10 AM CDT Due to temporary technical issues with the PACS/[employer] reporting system, reports are being moustapha d by the in-house radiologist without review as a courtesy to ensure prompt reporting the interpreting radiologist is fully responsible for the content of the report. Transcribed Date/Time: 01/22/2025 1:13 AM
[2025-01-22] MEDS: METRONIDAZOLE 500mg IVPB 500 MG/100 ML BAG IV SCH (01:33)
[2025-01-22] MEDS: D5 0.45 NS 1,000 ML IV SCH (01:48)
[2025-01-22] MEDS: PROMETHAZINE INJ 25 MG/ML AMP IV ONE (02:29)
[2025-01-22 03:29] VITALS: BMI 31.4
[2025-01-22 04:56] LABS: Absolute Lymphocytes (CBC) 1.2 K/uL (0.7-4.9); Absolute Monocytes 0.3 K/uL (0.1-1.3); Absolute Neutrophil 8.8 K/uL (1.8-8.0); Basophils % 0.1 % (0-1.3); Hemoglobin 10.6 g/dL (12.0-15.0); Lymphocytes % 11.8 % (15.3-44.8); MCH 28.6 pg (27.0-35.0); MCHC 33.3 g/dL (32.0-36.0); Monocytes % 2.6 % (3.3-12.3); Neutrophils % 85.5 % (41.7-73.7); Platelets 246 thou/uL (152-406); RBC Red Blood Cell Count 3.72 M/uL (3.86-4.86); Red Cell Distribution Width 14.4 % (12.1-15.2)
[2025-01-22] MEDS: HYDRALAZINE HCL 20 MG/ML VIAL IV PRN (05:17)
[2025-01-22 05:33] LABS: Albumin 3.3 g/dL (3.4-5.0); Albumin/Globulin Ratio 0.7 (1.1-1.8); Anion Gap 10.9 mEq/L (5.0-15.0); Bilirubin Total 0.3 mg/dL (0.2-1.0); Globulin 4.7 g/dL (2.3-3.5); Potassium 3.9 mEq/L (3.5-5.1)
[2025-01-22] MEDS: KCL 20 MEQ/100 mL IVPB 20 MEQ/100 ML BAG IV SCH (05:57)
[2025-01-22 06:33] LABS: Band Neutrophils 2 % (0-1); Blood Morphology Comment NOT SEEN (NOT SEEN); Differential Total Cells Count 100; Lymphocytes 14 % (15-42); Monocytes 3 % (0-10); Platelet Estimate ADEQ; Segmented Neutrophils 81 % (40-80)
[2025-01-22] MEDS: ONDANSETRON 4 MG/2 ML VIAL IV PRN (06:35)
--- NOTE | 2025-01-22 07:01 | RAD REPORT ---
EXAM: LIMITED ABDOMINAL ULTRASOUND (RIGHT UPPER QUADRANT) CLINICAL HISTORY: 74 years Female, Abdomen pain. TECHNIQUE: Real-time ultrasonography of the abdomen was performed. [id number]. COMPARISON: US Abdomen and US Pelvis 03/06/2024. FINDINGS: LIVER: The liver measures cm. GALLBLADDER: Cholelithiasis. No pericholecystic fluid. No reported sonographic Wilburn's sign. Gallbla dder wall measures 0.2 cm. BILE DUCTS: No intrahepatic biliary duct dilation. No extrahepatic biliary duct dilation. The com mon bile duct measures 0.5 cm. ASCITES: None ADDITIONAL FINDINGS: None IMPRESSION: Cholelithiasis Electronically signed by: Ani King MD 01/21/2025 11:33 PM CDT RP Due to temporary technical issues with the PACS/[employer] reporting system, reports are being moustapha d by the in-house radiologist without review as a courtesy to ensure prompt reporting the interpreting radiologist is fully responsible for the content of the report. Transcribed Date/Time: 01/22/2025 7:00 AM
--- NOTE | 2025-01-22 09:21 | RAD REPORT ---
EXAMINATION: MR CHOLANGIOGRAM CLINICAL INDICATION: Abdominal pain TECHNIQUE: Magnetic resonance cholangiopancreatogram was performed. 3D MIP reconstruction done. COMPARISON: January 21, 2025 CT and ultrasound FINDINGS: The gallbladder wall is thickened. Mild gallbladder distention Several gallstones are present measuring up to 2.2 cm. Common bile duct is dilated. There are several faint filling defects within the common bile duct issues for stones. Pancreatic duct unremarkable. IMPRESSION: Cholelithiasis Thickened gallbladder wall probably cholecystitis Dilatation of the common bile duct. Probable stones within the duct
[2025-01-22] MEDS: CEFTRIAXONE 1,000 MG in NA CHLORIDE 0.9% 50 ML IVPB SCH (09:33)
[2025-01-22] MEDS: MORPHINE 4 MG/ML SYR IV PRN (09:49)
--- NOTE | 2025-01-22 14:35 | P.HP ---
Patient History Date of Service: 01/22/25 Reason for admission: ABDOMEN PAIN, NAUSEA. History of Present Illness: ABDULKADIR HAS HAD ABDOMEN PAIN FOR COUPLE OF DAYS. SHE POINTS TO THE WHOLE ABDOMEN BUT MORE SO IN RUQ. SHE HAS NO FEVER. SHE IS WEAK AND NAUSEOUS. Allergies Penicillins Allergy (Verified 01/22/25 01:35) Hives/Rash Home Medications: Lovastatin 10 mg PO DAILY 01/22/25 Metformin ER [Glucophage ER*] 500 mg PO DAILY 01/22/25 Pantoprazole [Protonix Tab*] 40 mg PO DAILY PRN 01/22/25 Triamterene/Hydrochlorothiazid [Triamterene-Hctz 37.5-25 mg Tb] 1 each PO DAILY 01/22/25 lisinopriL [Lisinopril] 40 mg PO DAILY 01/22/25 - Social History Smoking Status: Never smoker Review of Systems 10-point ROS is otherwise unremarkable General: Weakness, As per HPI Gastrointestinal: Nausea, Abdominal Pain Physical Examination - Vital Signs Temperature: 98.5 F Blood Pressure: 158/66 Pulse: 72 Respirations: 20 Pulse Ox (%): 99 - Physical Exam General: Oriented x3, Moderate distress HEENT: Atraumatic, PERRLA, Mucous membr. moist/pink, EOMI, Sclerae nonicteric Neck: Supple, 2+ carotid pulse no bruit, No LAD, Without JVD or thyroid abnormality Respiratory: Clear to auscultation bilaterally, Normal air movement Cardiovascular: Regular rate/rhythm, Normal S1 S2 Gastrointestinal: Normal bowel sounds, No tenderness, Tenderness (RUQ, LLQ, RLQ. ) Musculoskeletal: No tenderness Integumentary: No rashes Neurological: Normal gait, Normal speech, Normal strength at 5/5 x4 extr, Normal tone, Normal affect Lymphatics: No axilla or inguinal lymphadenopathy - Studies Laboratory Data (last 24 hrs) 01/21/25 01/21/25 22:51 22:51 WBC 10.70 Hgb 9.7 L Hct 28.5 L Plt Count 269 Sodium 138 Potassium 3.9 BUN 18 Creatinine 1.12 H Glucose 149 H Total Bilirubin 0.3 AST 27 ALT 23 Alkaline Phosphatase 103 Lipase 91 H Assessment and Plan - Problems (Diagnosis) (1) Acute cholangitis Current Visit: Yes Status: Acute Plan: DR. RIVER CONSULTED IV ABX. MRCP SHOWS CHOLEDOCHOLITHIASIS. DR. VITALE CALLED IN TO DO ERCP. PROGNOSIS GUARDED GB REMOVAL IN AM. (2) Choledocholithiasis Current Visit: Yes Status: Acute - Advance Directives Does patient have a Living Will: No Does patient have a Durable POA for Healthcare: No
[2025-01-23] MEDS: NA CHLORIDE 0.9% 1,000 ML ONE (08:27)
[2025-01-23] MEDS ORDERED: LIDOCAINE 1% MPF 5 ML VIAL ONE (08:43)
[2025-01-23] MEDS ORDERED: propofoL 200 MG/20 ML VIAL IV ONE (08:43)
[2025-01-23] MEDS: ONDANSETRON 4 MG/2 ML VIAL ONE ×2 (10:05→10:27)
[2025-01-23] MEDS: PROMETHAZINE INJ 25 MG/ML AMP ONE (10:31)
[2025-01-23] MEDS ORDERED: SODIUM CHLORIDE 0.9% 10ML INJ IV PRN (10:44)
--- NOTE | 2025-01-23 15:35 | CON ---
Date of Consultation: 01/22/2025 Brief History Of Present Illness: The patient is a 74-year-old woman, who presents to the hospital w [facility] several days of right upper quadrant and epigastric abdominal pain, which has been getting progre ssively worse over several days prior to her arrival. She states that she has had episodes of pain b efore, but never to this level of intensity. She states that the pain predominantly got worse after she ate dinner that previous day. She had associations of nausea, vomiting, and continued to get pro gressive and as such, she came to the emergency room with the above-stated complaints. She had tried taking some acid pill without any significant improvement and she did have nausea with emesis prior to her arrival as well. Past Medical History: Significant for diabetes, hypertension. Allergies: PENICILLIN. Social History: She denies smoking, alcohol, or recreational drug use. Review of Systems: A 10-point review of systems other than HPI, denies. Physical Examination: General: She is awake, alert, oriented. Psychiatric: She is appropriate, conversive. HEENT: She is normocephalic. Sclerae anicteric. Mucous membranes moist. Oropharynx clear. Neck: Supple. No JVD. Chest: Normal to expansion and excursion. Cardiovascular: Regular rate and rhythm. Pulmonary: Clear to auscultation bilaterally. Abdomen: Soft with positive right upper quadrant and epigastric tenderness to palpation, most in the right upper quadrant. There is mild voluntary guarding and positive Wilburn sign on examination. Extremities: No clubbing, cyanosis, or edema. Skin: Warm and dry. Laboratory Data: Revealed a white blood cell count of 10.7, hemoglobin 9.7, hematocrit 28.5, platele t count was 269. Her sodium 138, potassium 3.9, chloride 108, carbon dioxide 23, BUN 18, creatinine 1.1, glucose is 149. Total bilirubin 0.3, direct not measured. AST 27, ALT 23, alkaline phosphatase is 103, lipase is 91. She had imaging performed as well, which included a CT abdomen, which was off icially read as findings, which may reflect early acute cholecystitis and mild biliary dilatation is noted. No calcified duct stones evident. Small right inguinal hernia contains small bowel. Small f at containing left inguinal hernia is noted as well. Atrophic uterus is noted. No adnexal masses. Assessment And Plan: This is a 74-year-old woman, who comes in with signs and symptoms of acute calc ulous cholecystitis, possible choledocholithiasis. 1. IV fluid hydration. 2. Antibiotic coverage. 3. MRCP to evaluate bile duct for possible choledocholithiasis. 4. Depending on the findings of her MRCP, we will either consult GI for possible ERCP. If this is lion ccessful, we will proceed with laparoscopic cholecystectomy. If it is unsuccessful, I have explained that she might be a candidate for a laparoscopic possible open cholecystectomy with contrast ICG, in docyanine green, and x-ray directed cholangiography, possible laparoscopic common bile duct explorati on and indicated procedures. I have explained the risks, benefits, and alternatives of the surgical interventions including, but not limited to bleeding, infection, damage to surrounding tissues, injur y to bile ducts, intestines, need for further operation procedures, may be the need for major reconst ructive abdominal surgery, blood clots, heart attack, stroke, other unforeseen complications in the p erioperative period. The patient displayed understanding of above stated plan as well as her family. They agreed to proceed as indicated. Thank you for this interesting consult. SHANNON/AYLA Voice ID: [id number] Report ID: [id number]
--- NOTE | 2025-01-23 17:04 | P.PN ---
Subjective Date of Service: 01/23/25 Chief Complaint: FEELS BETTER Subjective: Improving SHE IS A LOT BETTER. ERCP WAS DONE YESTERDAY. Review of Systems 10-point ROS is otherwise unremarkable General: Weakness Physical Examination - Vital Signs Temperature: 98.8 F Blood Pressure: 134/55 Pulse: 72 Respirations: 18 Pulse Ox (%): 97 - Physical Exam General: Alert, In no apparent distress HEENT: Atraumatic, PERRLA, EOMI Neck: Supple, JVD not distended Respiratory: Clear to auscultation bilaterally, Normal air movement Cardiovascular: Regular rate/rhythm, Normal S1 S2 Gastrointestinal: Normal bowel sounds, No tenderness Musculoskeletal: No tenderness Integumentary: No rashes Neurological: Normal speech, Normal tone, Normal affect Lymphatics: No axilla or inguinal lymphadenopathy - Studies Medications List Reviewed: Yes Assessment And Plan - Current Problems (Diagnosis) (1) Acute cholangitis Current Visit: Yes Status: Acute Plan: DR. RIVER CONSULTED IV ABX. MRCP SHOWS CHOLEDOCHOLITHIASIS. DR. VITALE CALLED IN TO DO ERCP. PROGNOSIS GUARDED DR VITALE DID ERCP, HE COULD NOT REMOVE STONES, STENT PLACED. DR ROBERTSON WILL DO A SURGICAL PROCEDURE TO REMOVE STONES AND GB ON SATURDAY. (2) Choledocholithiasis Current Visit: Yes Status: Acute
[2025-01-23] MEDS: PANTOPRAZOLE 40 MG INJ IVP SCH (20:46)
[2025-01-24 06:38] LABS: Absolute Lymphocytes (CBC) 1.9 K/uL (0.7-4.9); Absolute Monocytes 0.9 K/uL (0.1-1.3); Absolute Neutrophil 6.6 K/uL (1.8-8.0); Basophils % 0.4 % (0-1.3); Eosinophils % 0.3 % (0-4.4); Hemoglobin 8.7 g/dL (12.0-15.0); Lymphocytes % 20.1 % (15.3-44.8); MCH 28.9 pg (27.0-35.0); MCHC 33.5 g/dL (32.0-36.0); MCV 86.3 fL (80-100); MPV 8.5 fL (7.6-11.3); Monocytes % 9.8 % (3.3-12.3); Neutrophils % 69.4 % (41.7-73.7); Platelets 193 thou/uL (152-406); RBC Red Blood Cell Count 3.01 M/uL (3.86-4.86); Red Cell Distribution Width 14.6 % (12.1-15.2)
[2025-01-24 06:59] LABS: Anion Gap 9.4 mEq/L (5.0-15.0); Magnesium 1.9 mg/dL (1.6-2.4); Potassium 3.4 mEq/L (3.5-5.1)
--- NOTE | 2025-01-24 08:33 | RAD REPORT ---
EXAM: Fluoroscopy use, Fluoroscopy ERCP HISTORY: ERCP COMPARISON: None FINDINGS: Multiple images were sent to PACS, during a fluoroscopically guided procedure. No radiologi st was involved in protocoling or performance of the study, and no radiologist was present for the duration of the procedure. No interpretation of the saved images will be provided. Total fluoroscopy time: 49.7 seconds. IMPRESSION: Documentation of fluoroscopy use as above.
[2025-01-24] MEDS: MORPHINE 2 MG/ML SYR IV PRN (10:38)
--- NOTE | 2025-01-24 11:13 | P.PN ---
Subjective Date of Service: 01/24/25 Chief Complaint: FEELS BETTER Subjective: No new changes Physical Examination - Vital Signs Temperature: 98.3 F Blood Pressure: 140/63 Pulse: 77 Respirations: 18 Pulse Ox (%): 96 - Physical Exam General: Alert, In no apparent distress, Cooperative Gastrointestinal: Other (Soft, mild right upper quadrant and epigastric tenderness to palpation unchanged from previous exam, nonperitoneal signs at this time.) Neurological: Normal speech - Studies Medications List Reviewed: Yes Assessment And Plan - Current Problems (Diagnosis) (1) Choledocholithiasis Current Visit: Yes Status: Acute Plan: Patient is a 74-year-old woman who presents with choledocholithiasis and cholecystitis. -Patient had ERCP yesterday with Dr. Stout however a sweeping of the stones was unsuccessful and as such the patient had a precut sphincterotomy. - Dr. Stout feels the patient has abnormal anatomy precluding cannulation and as such this was the reason for the inability to complete the ERCP. - I have explained therefore that we will proceed with a laparoscopic cholecystectomy with indocyanine green cholangiography, contrast cholangiography, possible likely laparoscopic common bile duct expiration tomorrow. I have explained the risks benefits and alternatives of this plan include but not limited to bleeding infection damage to internal organs intestinal perforation injury to bile ducts intestines need for reconstructive surgery or multiple reconstructive surgeries, biloma bile leak heart attacks blood clots strokes other unforeseen complications in the perioperative period possible. Patient and family displayed understanding above-stated plan agreed to proceed as indicated.
--- NOTE | 2025-01-24 20:30 | P.PN ---
Subjective Date of Service: 01/24/25 Chief Complaint: FEELS BETTER Subjective: Improving SHE IS A LOT BETTER. ERCP WAS DONE YESTERDAY. ABDULKADIR IS STABLE. SHE WILL HAVE BILE DUCT EXPLORATION AND CHOLECYSTECTOMY TOMORROW. Review of Systems 10-point ROS is otherwise unremarkable General: Weakness, As per HPI Physical Examination - Vital Signs Temperature: 98.5 F Blood Pressure: 151/67 Pulse: 78 Respirations: 18 Pulse Ox (%): 97 - Physical Exam General: Alert, In no apparent distress HEENT: Atraumatic, PERRLA, EOMI Neck: Supple, JVD not distended Respiratory: Clear to auscultation bilaterally, Normal air movement Cardiovascular: Regular rate/rhythm, Normal S1 S2 Gastrointestinal: Normal bowel sounds, No tenderness Musculoskeletal: No tenderness Integumentary: No rashes Neurological: Normal speech, Normal tone, Normal affect Lymphatics: No axilla or inguinal lymphadenopathy - Studies Medications List Reviewed: Yes Assessment And Plan - Current Problems (Diagnosis) (1) Acute cholangitis Current Visit: Yes Status: Acute Plan: DR. RIVER CONSULTED IV ABX. MRCP SHOWS CHOLEDOCHOLITHIASIS. DR. VITALE CALLED IN TO DO ERCP. PROGNOSIS GUARDED DR VITALE DID ERCP, HE COULD NOT REMOVE STONES, STENT PLACED. DR ROBERTSON WILL DO A SURGICAL PROCEDURE TO REMOVE STONES AND GB ON SATURDAY. (2) Choledocholithiasis Current Visit: Yes Status: Acute Plan: HPI DR DAVISON WILL DO PROCEDURE AND SURGERY TO REMOVE GALL STONES AND GB. MEDICALLY STABLE WITH LOW TO MEDIUM RISK FROM AGE. THIS RISK IS NOT MODIFIABLE.
[2025-01-25 05:25] LABS: Absolute Eosinophils 0.1 K/uL (0-0.5); Absolute Lymphocytes (CBC) 1.2 K/uL (0.7-4.9); Absolute Monocytes 0.6 K/uL (0.1-1.3); Absolute Neutrophil 4.5 K/uL (1.8-8.0); Basophils % 0.5 % (0-1.3); Eosinophils % 0.8 % (0-4.4); Hematocrit 24.6 % (36.0-45.0); Hemoglobin 8.3 g/dL (12.0-15.0); Lymphocytes % 19.1 % (15.3-44.8); MCH 28.5 pg (27.0-35.0); MCHC 33.6 g/dL (32.0-36.0); Monocytes % 8.7 % (3.3-12.3); Neutrophils % 70.9 % (41.7-73.7); Platelets 215 thou/uL (152-406); Red Cell Distribution Width 14.9 % (12.1-15.2)
[2025-01-25 05:53] LABS: Albumin 2.3 g/dL (3.4-5.0); Albumin/Globulin Ratio 0.6 (1.1-1.8); Anion Gap 8.1 mEq/L (5.0-15.0); Bilirubin Total 0.3 mg/dL (0.2-1.0); Globulin 3.8 g/dL (2.3-3.5); Potassium 3.1 mEq/L (3.5-5.1); Protein, Total 6.1 g/dL (6.4-8.2)
[2025-01-25] MEDS: POTASSIUM CL SA 10 MEQ TAB PO ONE (09:00)
--- NOTE | 2025-01-25 12:56 | P.PN ---
Subjective Date of Service: 01/25/25 Chief Complaint: FEELS BETTER Subjective: Improving SHE IS A LOT BETTER. ERCP WAS DONE YESTERDAY. ABDULKADIR IS STABLE. SHE WILL HAVE BILE DUCT EXPLORATION AND CHOLECYSTECTOMY TOMORROW. GOING FOR SURGERY TODAY. NO FEVER. Review of Systems 10-point ROS is otherwise unremarkable General: Weakness Cardiovascular: As per HPI Physical Examination - Vital Signs Temperature: 98.3 F Blood Pressure: 130/79 Pulse: 73 Respirations: 16 Pulse Ox (%): 96 - Physical Exam General: Mild distress HEENT: Atraumatic, PERRLA, EOMI Neck: Supple, JVD not distended Respiratory: Clear to auscultation bilaterally, Normal air movement Cardiovascular: Regular rate/rhythm, Normal S1 S2 Gastrointestinal: Tenderness (DIFFUSE, MILD TENDER. ) Musculoskeletal: No tenderness Integumentary: No rashes Neurological: Normal speech, Normal tone, Normal affect Lymphatics: No axilla or inguinal lymphadenopathy - Studies Medications List Reviewed: Yes Assessment And Plan - Current Problems (Diagnosis) (1) Acute cholangitis Current Visit: Yes Status: Acute Plan: DR. RIVER CONSULTED IV ABX. MRCP SHOWS CHOLEDOCHOLITHIASIS. DR. VITALE CALLED IN TO DO ERCP. PROGNOSIS GUARDED DR VITALE DID ERCP, HE COULD NOT REMOVE STONES, STENT PLACED. DR ROBERTSON WILL DO A SURGICAL PROCEDURE TO REMOVE STONES AND GB ON SATURDAY. NPO FOR SURGERY TODAY. FAMILY AT BEDSIDE. (2) Choledocholithiasis Current Visit: Yes Status: Acute Plan: HPI DR DAVISON WILL DO PROCEDURE AND SURGERY TO REMOVE GALL STONES AND GB. MEDICALLY STABLE WITH LOW TO MEDIUM RISK FROM AGE. THIS RISK IS NOT MODIFIABLE.
[2025-01-25] MEDS ORDERED: propofoL 200 MG/20 ML VIAL IV ONE (14:35)
[2025-01-25] MEDS ORDERED: MIDAZOLAM HCL 2 MG/2 ML INJ ONE (14:35)
[2025-01-25] MEDS ORDERED: LIDOCAINE 1% MPF 5 ML VIAL ONE (14:35)
[2025-01-25] MEDS ORDERED: ONDANSETRON 4 MG/2 ML VIAL ONE (14:35)
[2025-01-25] MEDS ORDERED: FENTANYL CITR 100 MCG/2 ML ONE ×2 (14:35→16:17)
[2025-01-25] MEDS ORDERED: ROCURONIUM 50 MG/5 ML VIAL IV ONE (14:36)
[2025-01-25] MEDS: NA CHLORIDE 0.9% 1,000 ML ONE (14:40)
[2025-01-25] MEDS ORDERED: SUGAMMADEX SODIUM 200 MG/2 ML VIAL IV ONE (14:47)
[2025-01-25] MEDS: METRONIDAZOLE 500mg IVPB 500 MG/100 ML BAG IV ONE (15:12)
[2025-01-25] MEDS ORDERED: EPHEDRINE SULF 50 MG/ML VIAL ONE (15:31)
[2025-01-25] MEDS ORDERED: dexAMETHasone 4 MG/ML VIAL ONE (15:32)
[2025-01-25] MEDS: LIDOCAINE HCL/EPINEPHRINE 20 ML MDV ONE (15:48)
--- NOTE | 2025-01-25 16:58 | RAD REPORT ---
EXAM: Fluoroscopy use, Cholangiogram Oper-Xray Or HISTORY: [facility] MAIN IOC COMPARISON: None FINDINGS: Multiple images were sent to PACS, during a fluoroscopically guided intraoperative cholangi ogram. No radiologist was involved in protocoling or performance of the study, and no radiologist was present for the duration of the procedure. No interpretation of the saved images will be provided . Total fluoroscopy time: 0.6 minutes. IMPRESSION: Documentation of fluoroscopy use as above.
--- NOTE | 2025-01-25 17:44 | P.OP ---
Preoperative diagnosis: Choledocholithiasis with Cholecystitis Postoperative diagnosis: Choledocholithiasis with Cholecystitis Primary procedure: Laparoscopic Cholecystecomy with ICG and IOC Contrast Cholangiography Anesthesia: GETA + Local Estimated blood loss: 50cc Specimen: Gallbladder Findings: Stones cleared with flush, distended GB, abnormal tissue RUQ, CBD abnormal Complications: None Drain(s): PEARL drain (10mm Flat) Implants: Lolis Transferred to: Recovery Room Condition: Good
[2025-01-25] MEDS: HYDROMORPHONE HCL 1 MG/ML INJ ONE (18:02)
[2025-01-25 18:31] VITALS: O2SAT 96
[2025-01-25] MEDS: HYDROCODONE/APAP 5/325 MG TAB PO PRN (20:03)
--- NOTE | 2025-01-26 04:12 | OP ---
Date of Procedure: 01/25/2025 Surgeon: Asif Rojas MD, Preoperative Diagnosis: Choledocholithiasis with cholecystitis. Postoperative Diagnosis: Choledocholithiasis with cholecystitis. Procedure Performed: Laparoscopic cholecystectomy with indocyanine green cholangiography and intraop erative contrast cholangiography. Anesthesia: General endotracheal plus local with 1% lidocaine. Estimated Blood Loss: 50 cc. Specimens: Gallbladder. Findings: 1. Stones cleared from distal common bile duct with flush, clean common bile duct at the end of the p rocedure without evidence of filling defects. 2. Gallbladder was distended and enlarged requiring decompression needle. 3. There was an abnormal flap of tissue running in a lateral direction in the orientation of the templeton sverse colon to the anterior abdominal wall running from almost the lateral portion of the right uppe r quadrant to almost midline making a difficult entry for additional trocars. 4. Common bile duct had a somewhat abnormal course as it ran towards the hilar plate slightly protrud ing towards the hepatic fossa. 5. Significant inflammatory changes and bilious fluid evident on entry of the abdomen in the right up per quadrant in the perihepatic space requiring suction prior to manipulation and grasping of the gal lbladder. Complications: None immediate. Drains: 10 mm flat PEARL drain placed in the right upper quadrant in the subhepatic space. Implants: Lolis hemostatic powder. Condition: The patient was transferred to the recovery room in good condition. Brief History Of Present Illness: The patient is a 74-year-old woman who came to the hospital with e vidence of choledocholithiasis. Ultimately, MRCP confirmed choledocholithiasis. She was taken by Dr Ed Gaona for an ERCP and attempted sweeping of the bile duct stones. However, due to anatomic constrai nts, it was unable to be performed at this time. However, pre-cut sphincterotomy was performed durin g the time of the ERCP to allow for relieving of the hepatic obstruction. The patient was therefore deemed appropriate for operative intervention for laparoscopic possible ope n cholecystectomy with indocyanine green cholangiography as well as contrast intraoperative cholangio graphy, possible Spyglass laparoscopic common bile duct exploration. Procedure In Detail: After informed consent was obtained, the patient was brought to the operating r oom, prepped and draped in the usual sterile fashion. After adequate anesthesia achieved, I anesthet ized an area in the supraumbilical position up to subcutaneous tissues. A 5 mm 0-degree optical troc ar was introduced into the abdomen without incident or complication. Insufflation was obtained to 15 mmHg, at this time. No injury to vital structures upon entry into the abdomen. Additional trocar w as placed in the epigastric to the right of midline. This was similarly anesthetized, sharply incise d, and a 5 mm trocar placed under direct vision without incident or complication. The umbilical troc ar was then upsized to a 12 mm under direct vision without incident or complication. The additional trocars were in the right upper quadrant and the right mid abdomen. All of these were similarly anes thetized, sharply incised with a 5 mm trocar placed under direct vision without incident or complicat ion. At this point, the patient was positioned head up right-side up position. I noticed a flap of abnormal tissue, which was draping across from lateral to medial in a similar orientation of the temple[place] sverse colon, but did not appear to be connected to the colon in close apposition. It did not appear to be omentum as well. It appeared to be mesentery and thickened and inflamed. I therefore proceed ed to use the LigaSure device staying close apposition of the abdominal wall. There was no bowel leo r the plane of transection with the LigaSure. This was taken down to allow for grasping of the gallb ladder with the most lateral inferior right-sided trocar grasper. At this point, the patient remaine d in the head up right-side up position. Ratcheted grasper was attempt to grasp the patient's gallbl adder unsuccessfully due to the significant distention. There was bilious fluid in the right upper q uadrant. This area was suctioned out first. I then placed a decompression needle into the fundus of the gallbladder and decompressed the gallbladder at this point and allowed for grasping. The gallbl adder remained thickened, inflamed, and difficult to manipulate throughout the procedure. In additio n, a bloody oozing type material throughout the procedure with all graft surfaces. I grasped the gal lbladder placed towards the patient's right shoulder. Dissection continued down to the Bakari pouc h of the gallbladder. Indocyanine green cholangiography confirmed the anatomy as described as we vis ualized the cystic duct and cystic artery. The confluence of the common bile duct was appreciated to at this point using indocyanine green cholangiography. At this point, I proceeded to dissect around the 2 structures and identified both cystic duct and cystic artery, skeletonizing these structures u sing blunt dissection electrocautery. After these structures were identified and a critical view of safety was obtained at this point with the liver in the posterior window, I made a small paola incisio n after confirming the anatomy once again with indocyanine green cholangiography. Bile was emanating from this portion near the confluence of the gallbladder and cystic duct junction. I then placed an Arrow catheter kit into the cystic duct and inflated the balloon and I performed a cholangiography a t this point. There appeared to be some small sludgy type material, which was flushed out using a sa line flush after contrast cholangiography was initiated. I then performed additional cholangiography using a 50:50 mixture of dye and sterile saline. At this point, there was no additional filling def ects and I saw some nice smooth tapering and the duodenum filled quite easily and nicely at this poin t. No leakage of bile was appreciated throughout the procedure. At this point, I removed the balloo n and the catheter set. After cholangiopathy was completed, the images were sent to the radiologist for additional confirmation who ultimately agreed with my findings based on the images available. At this point, I placed double titanium clips double on the proximal side and singly on the distal side of both the cystic duct and cystic artery. I then ligated the cystic duct between [place] and t he cystic artery using the LigaSure device. At this point, I placed an additional Endoloop at the st ump of the cystic duct between the clips to allow for good apposition of this area. This was a 3-0 E ndoloop stitch of Vicryl. The area was copiously irrigated at this point and the gallbladder was rem dedrick from the hepatic fossa. There was significant fulguration required on the subhepatic space to r emove the gallbladder from the hepatic fossa. There was hydropic type appearance of the gallbladder making removal quite difficult despite using electrocautery and meticulous dissection. All cut surfa lima oozed despite fulguration for some time. After the gallbladder was removed, it was placed in End oCatch bag and removed with an umbilical trocar and sent off for pathologic examination. The abdomen was reinflated at this point, and I irrigated the right upper quadrant once again. Some additional fulguration was required near the distal aspect and mid portions of the subhepatic fossa. I performe d indocyanine green cholangiography. I did not see any bile leakage at this point. However, due to the proximity of the common duct to the plane of dissection near the proximal aspect of the cystic du ct, I opted to place a drain in the right upper quadrant at this point. I brought it out through the lateral inferior trocar and placed in the subhepatic space. The area was copiously irrigated. I in spected the area for hemostasis, which was achieved at this point. I then proceeded to spray Lolis hemostatic powder into the subhepatic space as well and I ultimately brought the omentum and packed i n this area. The patient was placed in neutral position. The remaining of fluid was suctioned out. No additional hemostatic was required at this point. I then proceeded to close the umbilical trocar site using a Alton-Rivera suture passer with multiple passes of a #1 Vicryl in interrupted fashio n with good approximation of tissues and pneumoperitoneum was maintained. I then proceeded to secure the drain with a 3-0 nylon suture and I inspected the area, which was found to be intact and all cli ps remained in good anatomic position as well as the Endoloop as well as the drain at this point. I then proceeded to desufflate the abdomen under direct vision without incident or complication. Remai nder of the trocars were removed. All skin incisions were then copiously irrigated and closed with a 4-0 Monocryl in a running fashion. Dermabond was placed over top. The patient tolerated the proced ure without incident or complication, transferred to PACU in good condition. All counts were correct at the end of the case. SHANNON/AYLA Voice ID: [id number] Report ID: [id number]
[2025-01-26 05:25] LABS: Absolute Monocytes 0.6 K/uL (0.1-1.3); Absolute Neutrophil 6.7 K/uL (1.8-8.0); Basophils % 0.2 % (0-1.3); Hematocrit 27.9 % (36.0-45.0); Hemoglobin 9.5 g/dL (12.0-15.0); Lymphocytes % 12.4 % (15.3-44.8); MCH 28.9 pg (27.0-35.0); MCV 85.2 fL (80-100); Monocytes % 6.7 % (3.3-12.3); Neutrophils % 80.7 % (41.7-73.7); Platelets 262 thou/uL (152-406); RBC Red Blood Cell Count 3.27 M/uL (3.86-4.86); Red Cell Distribution Width 14.5 % (12.1-15.2)
[2025-01-26 05:56] LABS: Albumin 2.6 g/dL (3.4-5.0); Albumin/Globulin Ratio 0.6 (1.1-1.8); Anion Gap 11.4 mEq/L (5.0-15.0); Bilirubin Total 0.3 mg/dL (0.2-1.0); Globulin 4.1 g/dL (2.3-3.5); Phosphorus 2.8 mg/dL (2.5-4.9); Potassium 3.4 mEq/L (3.5-5.1); Protein, Total 6.7 g/dL (6.4-8.2)
[2025-01-26] MEDS: POTASSIUM CL SA 10 MEQ TAB PO ONE (08:44)
--- NOTE | 2025-01-26 13:17 | P.PN ---
Subjective Date of Service: 01/26/25 Chief Complaint: FEELS BETTER Subjective: Improving SHE IS A LOT BETTER. ERCP WAS DONE YESTERDAY. ABDULKADIR IS STABLE. SHE WILL HAVE BILE DUCT EXPLORATION AND CHOLECYSTECTOMY TOMORROW. GOING FOR SURGERY TODAY. NO FEVER. SHE HAD EXTENSIVE GB AND BILE DUCT SURGERY YESTERDAY. SHE IS ALREADY AMBULATING BUT IN PAIN. WILL KEEP HER ONE MORE DAY AT [facility]. Physical Examination - Vital Signs Temperature: 98.1 F Blood Pressure: 160/68 Pulse: 83 Respirations: 14 Pulse Ox (%): 94 - Physical Exam General: Moderate distress HEENT: Atraumatic, PERRLA, EOMI Neck: Supple, JVD not distended Respiratory: Clear to auscultation bilaterally, Normal air movement Cardiovascular: Regular rate/rhythm, Normal S1 S2 Gastrointestinal: Normal bowel sounds, Non-distended, Tenderness Musculoskeletal: No tenderness Integumentary: No rashes Neurological: Normal speech, Normal tone, Normal affect Lymphatics: No axilla or inguinal lymphadenopathy - Studies Medications List Reviewed: Yes Assessment And Plan - Current Problems (Diagnosis) (1) Acute cholangitis Current Visit: Yes Status: Acute Plan: DR. RIVER CONSULTED IV ABX. MRCP SHOWS CHOLEDOCHOLITHIASIS. DR. VITALE CALLED IN TO DO ERCP. PROGNOSIS GUARDED DR VITALE DID ERCP, HE COULD NOT REMOVE STONES, STENT PLACED. DR ROBERTSON WILL DO A SURGICAL PROCEDURE TO REMOVE STONES AND GB ON SATURDAY. NPO FOR SURGERY TODAY. FAMILY AT BEDSIDE. (2) Choledocholithiasis Current Visit: Yes Status: Acute Plan: HPI DR DAVISON WILL DO PROCEDURE AND SURGERY TO REMOVE GALL STONES AND GB. MEDICALLY STABLE WITH LOW TO MEDIUM RISK FROM AGE. THIS RISK IS NOT MODIFIABLE.
[2025-01-27 06:43] LABS: Absolute Lymphocytes (CBC) 1.2 K/uL (0.7-4.9); Absolute Monocytes 0.7 K/uL (0.1-1.3); Basophils % 0.4 % (0-1.3); Eosinophils % 0.2 % (0-4.4); Hematocrit 23.9 % (36.0-45.0); Hemoglobin 8.1 g/dL (12.0-15.0); Lymphocytes % 15.7 % (15.3-44.8); MCH 28.8 pg (27.0-35.0); MCV 84.7 fL (80-100); MPV 7.7 fL (7.6-11.3); Monocytes % 8.3 % (3.3-12.3); Neutrophils % 75.4 % (41.7-73.7); Platelets 233 thou/uL (152-406); RBC Red Blood Cell Count 2.81 M/uL (3.86-4.86); Red Cell Distribution Width 14.7 % (12.1-15.2)
[2025-01-27 07:01] LABS: Albumin 2.3 g/dL (3.4-5.0); Albumin/Globulin Ratio 0.6 (1.1-1.8); Bilirubin Total 0.3 mg/dL (0.2-1.0); Globulin 3.6 g/dL (2.3-3.5); Protein, Total 5.9 g/dL (6.4-8.2)
[2025-01-27 08:41] VITALS: TEMP 98.5
[2025-01-27] MEDS: POTASSIUM 25 MEQ EFFERV TAB PO ONE (11:12)
--- NOTE | 2025-01-27 11:58 | P.DS ---
Admission Date: 01/22/25 Discharge Date: 01/27/25 Disposition: ROUTINE DISCHARGE Discharge Condition: GOOD Reason for Admission: FEELS BETTER - Problems (1) Acute cholangitis Current Visit: Yes Status: Acute (2) Choledocholithiasis Current Visit: Yes Status: Acute Brief History of Present Illness: ABDULKADIR HAS HAD ABDOMEN PAIN FOR COUPLE OF DAYS. SHE POINTS TO THE WHOLE ABDOMEN BUT MORE SO IN RUQ. SHE HAS NO FEVER. SHE IS WEAK AND NAUSEOUS. Hospital Course: ABDULKADIR CAME WITH ABDOMEN PAIN,WAS FOUND TO HAVE CHOLANGITIS, CHOLECYSTITIS , CHOLDOCHOLITHIASIS, WENT FOR ERCP. DR. VITALE WAS NOT ABLE TO REMOVE STONES. DR. Swanson DID INTROPERATIVE BILE STONE EXTRACTION AND CHOLECYSTECTOMY. SHE TOOK A FEW DAYS TO RECOVER. SHE HAS A DRAIN AND WILL FU WITH DR. Swanson AND ME. SHE IS STABLE. Vital Signs/Physical Exam: Temp Pulse Resp BP Pulse Ox 98.5 F 85 18 120/51 L 94 01/27/25 08:00 01/27/25 08:00 01/27/25 08:00 01/27/25 08:00 01/27/25 08:00 General: Mild distress HEENT: Atraumatic, PERRLA, EOMI Neck: Supple, JVD not distended Respiratory: Clear to auscultation bilaterally, Normal air movement Cardiovascular: Regular rate/rhythm, Normal S1 S2 Gastrointestinal: Normal bowel sounds, No tenderness Musculoskeletal: No tenderness Integumentary: No rashes Neurological: Normal speech, Normal tone, Normal affect Lymphatics: No axilla or inguinal lymphadenopathy Laboratory Data at Discharge: WBC 7.90 thou/uL (4.3-10.9) 01/27/25 06:24 Hgb 8.1 g/dL (12.0-15.0) L D 01/27/25 06:24 Hct 23.9 % (36.0-45.0) L 01/27/25 06:24 Plt Count 233 thou/uL (152-406) 01/27/25 06:24 Sodium 143 mEq/L (136-145) 01/27/25 06:24 Potassium 3.0 mEq/L (3.5-5.1) L 01/27/25 06:24 BUN 10 mg/dL (7-18) 01/27/25 06:24 Creatinine 0.90 mg/dL (0.55-1.02) 01/27/25 06:24 Glucose 137 mg/dL (74-106) H 01/27/25 06:24 Phosphorus 2.8 mg/dL (2.5-4.9) 01/26/25 05:10 Magnesium 1.9 mg/dL (1.6-2.4) 01/24/25 06:03 Total Bilirubin 0.3 mg/dL (0.2-1.0) 01/27/25 06:24 AST 26 U/L (15-37) 01/27/25 06:24 ALT 21 U/L (13-56) 01/27/25 06:24 Alkaline Phosphatase 74 U/L (45-117) 01/27/25 06:24 Lipase 91 U/L (13-75) H 01/21/25 22:51 Home Medications: Lovastatin 10 mg PO DAILY 01/22/25 Metformin ER [Glucophage ER*] 500 mg PO DAILY 01/22/25 Pantoprazole [Protonix Tab*] 40 mg PO DAILY PRN 01/22/25 Triamterene/Hydrochlorothiazid [Triamterene-Hctz 37.5-25 mg Tb] 1 each PO DAILY 01/22/25 lisinopriL [Lisinopril] 40 mg PO DAILY 01/22/25 Ciprofloxacin HCl [Cipro 500 MG Tablet] 500 mg PO BID #10 tab 01/27/25 Metronidazole 500 mg PO TID #15 tab 01/27/25 New Medications: Ciprofloxacin HCl [Cipro 500 MG Tablet] 500 mg PO BID #10 tab Metronidazole 500 mg PO TID #15 tab Followup: Dallin Cochran MD [Primary Care Provider] - 1-2 Weeks Asif Rojas MD [ACTIVE - CAN ADMIT] - 1-2 Weeks
[2025-01-27 12:15] VITALS: BP 167/80
== END 2025-01-27 14:17 | disposition home or self-care (01) | DRG 419 ==
LOC: ER 22:02 → ERHOLD 01-22 00:20 → 2ND 01-22 00:41
PROVIDERS: ADMIT Internal Medicine; ATTEND Internal Medicine
PROC: BF52200 Other Imaging of Gallbladder using Fluorescing Agent, Indocyanine Green Dye, Intraoperative (ICD-10-PCS; 2025-01-25)
PROC: 0FT44ZZ Resection of Gallbladder, Percutaneous Endoscopic Approach (ICD-10-PCS; principal; 2025-01-25 17:10)
DX: K80.42 Calculus of bile duct with acute cholecystitis without obstruction (principal); I10 Essential (primary) hypertension; E11.9 Type 2 diabetes mellitus without complications; E66.9 Obesity, unspecified; Z88.0 Allergy status to penicillin; Z68.31 Body mass index [BMI] 31.0-31.9, adult; Z79.84 Long term (current) use of oral hypoglycemic drugs; Z79.899 Other long term (current) drug therapy
CPT/HCPCS: 36415; 74177; 74181; 74300; 76705; 80048; 80053; 82947; 83690; 83735; 84100; 85025; 88304; 97116; 97161; 97530; 99285; C1769; J0360; J0696; J1100; J1171; J2003; J2250; J2270; J2405; J2470; J2550; J2704; J3010; J3480; J7030; J7799; Q9967